=== PATIENT | female | born 1970 ===

== ENCOUNTER 2017-10-18 08:04 | Emergency (ER) | payer OTHER, SELFPAY ==
[2017-10-18 08:09] VITALS: BMI 54.8
--- NOTE | 2017-10-18 08:30 | ED PDOC ---
HPI: Back Time Seen by Provider: 10/18/17 08:08 Chief Complaint (Provider): Lower back Pain History Per: Patient History/Exam Limitations: no limitations Onset/Duration Of Symptoms: Other (x 1 week) Current Symptoms Are (Timing): Still Present Quality Of Discomfort: "Pain" Severity: None Associated Symptoms: None Additional Complaint(s): 47 year old female presents to the emergency department complaining of lower back pain x 1 week. Patient reports that beulah radiated to her right hip. Denies dysuria, frequency, leg weakness, paresthesias, nausea, vomiting. PMD: Past Medical History Reviewed: Historical Data, Nursing Documentation, Vital Signs Vital Signs: Last Vital Signs Temp 98.4 F 10/18/17 08:08 Pulse 80 10/18/17 08:08 Resp 20 10/18/17 08:08 BP 135/72 10/18/17 08:08 Pulse Ox 96 10/18/17 08:08 - Medical History PMH: No Chronic Diseases - Surgical History Surgical History: No Surg Hx - Family History Family History: States: Unknown Family Hx - Home Medications Home Medications: Ambulatory Orders Medication Instructions Recorded Cyclobenzaprine [Cyclobenzaprine 10 mg PO TID #10 tab 10/18/17 HCl] Naproxen [Naprosyn] 500 mg PO Q12H #20 tab 10/18/17 - Allergies Allergies/Adverse Reactions: Allergies Allergy/AdvReac Type Severity Reaction Status Date / Time No Known Allergies Allergy Verified 10/18/17 08:34 Review of Systems ROS Statement: Except As Marked, All Systems Reviewed And Found Negative Gastrointestinal: Negative for: Nausea, Vomiting Genitourinary Female: Negative for: Dysuria, Frequency Musculoskeletal: Positive for: Back Pain (lower) Physical Exam - Reviewed Nursing Documentation Reviewed: Yes Vital Signs Reviewed: Yes - Physical Exam Appears: Positive for: Non-toxic, No Acute Distress Head Exam: Positive for: ATRAUMATIC, NORMAL INSPECTION, NORMOCEPHALIC Skin: Positive for: Normal Color, Warm, Dry. Negative for: Rash Eye Exam: Positive for: Normal appearance, EOMI, PERRL. Negative for: Nystagmus ENT: Positive for: Normal ENT Inspection. Negative for: Nasal Congestion, Tonsillar Exudate, Tonsillar Swelling Neck: Positive for: Normal, Painless ROM, Supple Cardiovascular/Chest: Positive for: Regular Rate, Rhythm, Chest Non Tender. Negative for: Murmur, Tachycardia Respiratory: Positive for: Normal Breath Sounds. Negative for: Rales, Rhonchi, Wheezing, Respiratory Distress Gastrointestinal/Abdominal: Positive for: Normal Exam, Bowel Sounds, Soft. Negative for: Tenderness, Mass, Guarding, Rebound Back: Positive for: Muscle Spasm (right sided para lumbar spasms and tenderness) . Negative for: L CVA Tenderness, R CVA Tenderness, Vertebral Tenderness, Other (No spinal tenderness ot deformity) Extremity: Positive for: Normal ROM. Negative for: Tenderness, Calf Tenderness , Deformity, Swelling Neurologic/Psych: Positive for: Alert, Oriented, Gait. Negative for: Motor/ Sensory Deficits - ECG O2 Sat by Pulse Oximetry: 96 (RA) Pulse Ox Interpretation: Normal Medical Decision Making Medical Decision Makin Initial Impression 47 year old female presenting with lower back pain Initial Plan: * Udip * Upreg * Reevaluation Documented by Loni Murray acting as a scribe for William Story MD. All medical record entries made by the Scribe were at my direction and personally dictated by me. I have reviewed the chart and agree that the record accurately reflects my personal performance of the history, physical exam, medical decision making, and the department course for this patient. I have also personally directed, reviewed, and agree with the discharge instructions and disposition. Disposition - Clinical Impression Clinical Impression: Back pain - Patient ED Disposition Is Patient to be Admitted: No - Disposition Referrals: [facility] [Outside] Disposition: Routine/Home Disposition Time: 09:15 Condition: FAIR Prescriptions: Cyclobenzaprine [Cyclobenzaprine HCl] 10 mg PO TID #10 tab Naproxen [Naprosyn] 500 mg PO Q12H #20 tab Instructions: Low Back Pain (DC) Forms: [employer] (Malian) Print Language: PARAGUAYAN
[2017-10-18 09:08] VITALS: BP 128/76; PULSE 76; RESP 18; TEMP 97.8
[2017-10-18 09:47] VITALS: O2SAT 96
== END 2017-10-18 09:06 | disposition home or self-care (01) ==
LOC: H.ER 08:04
DX: M54.9 Dorsalgia, unspecified (principal)